=== PATIENT | male | born 1950 | race Caucasian/White ===

== ENCOUNTER 2019-09-03 12:49 | Inpatient (IN) | payer OTHER ==
[~2019-09-03] VITALS: Ht 182.9 cm; Wt 62.2 kg
--- NOTE | 2019-09-03 13:17 | NUR ---
PATIENT STATES HE SLIPPED AND FELL ON HIS HIP ABOUT 12 DAYS AGO. WENT TO [facility] IN [place] AND WAS TOLD HE HAD A FRACTURED HIP - HE DID NOT BELIEVE THAT. HE CAME OUT TO [place] TO VISIT FAMILY AND WAS IN PAIN AND HAVING TROUBLE WALKING. WENT TO THE [facility] IN [place] AND WAS BROUGHT TO [facility] FOR SURGERY.
[2019-09-03] MEDS ORDERED: ASPI81TA45 PO (13:26)
--- NOTE | 2019-09-03 13:26 | NUR ---
PATIENT STANDBY ASSIST. STATES LAST TIME ATE OR DRANK WAS COFFEE AT 0700 THIS MORNING.
[2019-09-03 13:29] LABS: BASOPHILS # (AUTO) 0.05 x10^3/uL (0-0.1); BASOPHILS % (AUTO) 1 % (0-1); EOSINOPHILS # (AUTO) 0.14 x10^3/uL (0-0.4); EOSINOPHILS % (AUTO) 2 % (1-7); LYMPHOCYTES # (AUTO) 1.77 x10^3/uL (1-3.4); LYMPHOCYTES % (AUTO) 20 % (22-44); MD NO; MEAN CORPUSCULAR HEMOGLOBIN 30.6 pg (27.5-34.5); MEAN CORPUSCULAR HGB CONC 32.5 g/dL (33.2-36.2); MEAN CORPUSCULAR VOLUME 94.1 fL (81-97); MEAN PLATELET VOLUME 7.7 fL (7.4-10.4); MONOCYTES # (AUTO) 0.41 x10^3/uL (0.2-0.8); MONOCYTES % (AUTO) 5 % (2-9); NEUTROPHILS # (AUTO) 6.33 x10^3/uL (1.8-6.8); NEUTROPHILS % (AUTO) 73 % (42-75); PLATELET COUNT 415 x10^3/uL (130-400); RED BLOOD COUNT 5.08 x10^6/uL (4.38-5.82); RED CELL DISTRIBUTION WIDTH 14.8 % (9.4-14.8)
[2019-09-03] MEDS ORDERED: SODIUM CHLORIDE FLUSH 10ML SYR IVF ONE (13:30)
[2019-09-03 13:41] LABS: ALBUMIN 3.2 g/dL (3.4-5.0); ANION GAP 5 mmol/L (5-15); CALCIUM 8.6 mg/dL (8.5-10.1); CHLORIDE 110 mmol/L (98-107); CREATININE 0.82 mg/dL (0.7-1.3)
[2019-09-03] MEDS ORDERED: [UNRECOGNIZED DRUG - REMARK] PO (13:49)
--- NOTE | 2019-09-03 15:07 | NUR ---
PATIENT IS GETTING READY FOR SURGERY TODAY. PATIENT IS ANXIOUS ABOUT THE SURGERY.
--- NOTE | 2019-09-03 15:15 | NUR ---
DOCTOR TONEY NOTIFIED ABOUT HIGH BLOOD PRESSURE
[2019-09-03] MEDS ORDERED: SODIUM CHLORIDE FLUSH 10ML SYR IVF PRN (15:30)
--- NOTE | 2019-09-03 15:37 | NUR ---
PATIENT DENIES HAVING ANY BELONGINGS HERE WITH HIM BESIDES HIS BOXERS
[2019-09-03] MEDS ORDERED: POLYETHYLENE GLYCOL 17 GM PACKET PO PRN (16:30)
[2019-09-03] MEDS ORDERED: DOCUSATE 100 MG CAPSULE PO PRN (16:30)
[2019-09-03] MEDS ORDERED: LABETALOL 5MG/ML, 20ML IVPush PRN (16:30)
[2019-09-03] MEDS ORDERED: ONDANSETRON ODT 4 MG PO PRN (16:30)
[2019-09-03] MEDS ORDERED: DEXAMETHASONE 4 MG/ML, 1ML ONE (17:35)
[2019-09-03] MEDS ORDERED: hydrALAzine 20 MG/ML, 1ML ONE (17:35)
[2019-09-03] MEDS ORDERED: ROCURONIUM 10MG/ML,5ML ONE (17:35)
[2019-09-03] MEDS ORDERED: MIDAZOLAM 1 MG/ML, 2ML ONE (17:35)
[2019-09-03] MEDS ORDERED: ONDANSETRON 2MG/ML, 2ML ONE (17:35)
[2019-09-03] MEDS ORDERED: FENTANYL PF 250 MCG/5ML ONE (17:35)
[2019-09-03] MEDS ORDERED: PROPOFOL 10 MG/ML, 20ML ONE (17:35)
[2019-09-03] MEDS ORDERED: CEFAZOLIN 1,000 MG ONE (17:35)
[2019-09-03] MEDS ORDERED: SUCCINYLCHOLINE 20 MG/ML, 10ML ONE (17:35)
[2019-09-03] MEDS ORDERED: LABETALOL 5MG/ML, 20ML ONE (17:35)
[2019-09-03] MEDS ORDERED: HYDROmorphone 1 MG/ML, 1ML INJ IV PRN (18:30)
[2019-09-03] MEDS ORDERED: METOCLOPRAMIDE 5 MG/ML, 2ML IV PRN (18:30)
[2019-09-03] MEDS ORDERED: FENTANYL PF 100 MCG/2ML IV PRN (18:30)
[2019-09-03] MEDS ORDERED: KETOROLAC 30 MG/1 ML IV PRN (18:30)
[2019-09-03] MEDS ORDERED: ONDANSETRON 2MG/ML, 2ML IVPush PRN (18:30)
[2019-09-03] MEDS ORDERED: OXYcodone 5 MG/5 ML ORAL.SOL UDC PO PRN (18:30)
[2019-09-03] MEDS ORDERED: ALBUTEROL SULFATE 2.5 MG/3 ML NPPB PRN (18:30)
[2019-09-03] MEDS ORDERED: MEPERIDINE/PF 25MG/0.5ML IVPush PRN (18:30)
[2019-09-03] MEDS ORDERED: PROMETHAZINE 25 MG/ML, 1ML IV PRN (18:30)
[2019-09-03] MEDS ORDERED: hydrALAzine 20 MG/ML, 1ML IV PRN (18:30)
[2019-09-03] MEDS ORDERED: LABETALOL 5MG/ML, 20ML IV PRN (18:30)
[2019-09-03] MEDS ORDERED: OXYcodone 5 MG/5 ML ORAL.SOL UDC ONE (19:10)
[2019-09-03] MEDS ORDERED: FENTANYL PF 100 MCG/2ML ONE (19:22)
[2019-09-03 20:00] VITALS: BP 152/84
[2019-09-03 20:15] VITALS: BP 150/88
[2019-09-03 20:30] VITALS: BP 149/89
[2019-09-03] MEDS: NICOTINE 14MG/24 HR PATCH.TD24 TD SCH (20:37)
[2019-09-03] MEDS: HEPARIN 5,000 UNITS/ML, 1ML SQ SCH (20:37)
[2019-09-03] MEDS: AMLODIPINE 5 MG TABLET PO SCH (20:38)
[2019-09-03] MEDS: LISINOPRIL 10 MG TABLET PO SCH (20:38)
[2019-09-03 20:45] VITALS: BP 149/89
[2019-09-04] MEDS: CEFAZOLIN PMX 1GM/50ML 50 ML IV SCH ×2 (01:22→10:35)
[2019-09-04 02:00] VITALS: BP 114/71
[2019-09-04] MEDS: OXYcodone IR 5MG TABLET PO PRN ×4 (03:12→20:50)
[2019-09-04] MEDS: HEPARIN 5,000 UNITS/ML, 1ML SQ SCH ×3 (05:02→20:41)
[2019-09-04 05:36] LABS: ALBUMIN 2.5 g/dL (3.4-5.0); ANION GAP 8 mmol/L (5-15); CALCIUM 7.8 mg/dL (8.5-10.1); CHLORIDE 106 mmol/L (98-107)
[2019-09-04 05:38] LABS: BASOPHILS # (AUTO) 0.03 x10^3/uL (0-0.1); BASOPHILS % (AUTO) 0 % (0-1); EOSINOPHILS % (AUTO) 0 % (1-7); LYMPHOCYTES % (AUTO) 6 % (22-44); MD NO; MEAN CORPUSCULAR HEMOGLOBIN 30.4 pg (27.5-34.5); MEAN CORPUSCULAR HGB CONC 32.6 g/dL (33.2-36.2); MEAN CORPUSCULAR VOLUME 93.5 fL (81-97); MEAN PLATELET VOLUME 7.9 fL (7.4-10.4); MONOCYTES # (AUTO) 0.85 x10^3/uL (0.2-0.8); MONOCYTES % (AUTO) 7 % (2-9); NEUTROPHILS # (AUTO) 10.31 x10^3/uL (1.8-6.8); NEUTROPHILS % (AUTO) 87 % (42-75); PLATELET COUNT 347 x10^3/uL (130-400); RED BLOOD COUNT 4.09 x10^6/uL (4.38-5.82); RED CELL DISTRIBUTION WIDTH 14.5 % (9.4-14.8)
[2019-09-04 05:40] LABS: ALANINE AMINOTRANSFERASE 10 U/L (12-78); ALKALINE PHOSPHATASE 65 U/L (45-117); BILIRUBIN,TOTAL 0.6 mg/dL (0.2-1.0); CREATININE 0.87 mg/dL (0.7-1.3); TOTAL PROTEIN 5.4 g/dL (6.4-8.2)
[2019-09-04 08:00] VITALS: BP 124/72
[2019-09-04] MEDS: LISINOPRIL 10 MG TABLET PO SCH (09:47)
[2019-09-04] MEDS: AMLODIPINE 5 MG TABLET PO SCH (09:47)
[2019-09-04] MEDS ORDERED: MAGNESIUM SULFATE PMX 2GM/50ML 50 ML IV ONE (11:30)
[2019-09-04 14:00] VITALS: BP 101/63
[2019-09-04 19:11] VITALS: BP 135/74
[2019-09-04] MEDS: NICOTINE 14MG/24 HR PATCH.TD24 TD SCH (20:30)
[2019-09-04] MEDS: morphine SULFATE 10 MG/ML, 1ML IVPush PRN (22:08)
[2019-09-05 01:52] VITALS: BP 125/76
[2019-09-05] MEDS: OXYcodone IR 5MG TABLET PO PRN ×4 (03:41→23:35)
[2019-09-05] MEDS: morphine SULFATE 10 MG/ML, 1ML IVPush PRN ×2 (04:51→12:58)
[2019-09-05] MEDS: HEPARIN 5,000 UNITS/ML, 1ML SQ SCH ×3 (04:51→21:23)
[2019-09-05 05:29] LABS: BASOPHILS # (AUTO) 0.05 x10^3/uL (0-0.1); BASOPHILS % (AUTO) 1 % (0-1); EOSINOPHILS # (AUTO) 0.08 x10^3/uL (0-0.4); EOSINOPHILS % (AUTO) 1 % (1-7); LYMPHOCYTES # (AUTO) 1.52 x10^3/uL (1-3.4); LYMPHOCYTES % (AUTO) 19 % (22-44); MD NO; MEAN CORPUSCULAR HEMOGLOBIN 30.7 pg (27.5-34.5); MEAN CORPUSCULAR HGB CONC 32.8 g/dL (33.2-36.2); MEAN CORPUSCULAR VOLUME 93.7 fL (81-97); MEAN PLATELET VOLUME 7.9 fL (7.4-10.4); MONOCYTES # (AUTO) 0.87 x10^3/uL (0.2-0.8); MONOCYTES % (AUTO) 11 % (2-9); NEUTROPHILS # (AUTO) 5.66 x10^3/uL (1.8-6.8); NEUTROPHILS % (AUTO) 69 % (42-75); PLATELET COUNT 308 x10^3/uL (130-400); RED BLOOD COUNT 3.69 x10^6/uL (4.38-5.82); RED CELL DISTRIBUTION WIDTH 14.9 % (9.4-14.8)
[2019-09-05 05:40] LABS: ANION GAP 5 mmol/L (5-15); CHLORIDE 107 mmol/L (98-107); CREATININE 0.79 mg/dL (0.7-1.3)
[2019-09-05] MEDS: AMLODIPINE 5 MG TABLET PO SCH (08:39)
[2019-09-05] MEDS: LISINOPRIL 10 MG TABLET PO SCH (08:39)
[2019-09-05 08:42] VITALS: BP 122/73
[2019-09-05] MEDS ORDERED: MORPHINE SULFATE 4 MG/ML, 1ML ONE (12:56)
[2019-09-05 14:15] VITALS: BP 145/76
[2019-09-05 18:00] VITALS: BP 146/86
[2019-09-05] MEDS: NICOTINE 14MG/24 HR PATCH.TD24 TD SCH (20:30)
[2019-09-05 23:30] VITALS: BP 129/75
[2019-09-06 01:13] VITALS: BP 132/76
[2019-09-06] MEDS: HEPARIN 5,000 UNITS/ML, 1ML SQ SCH ×3 (05:37→21:17)
[2019-09-06 07:54] LABS: ALANINE AMINOTRANSFERASE 10 U/L (12-78); ALBUMIN 2.4 g/dL (3.4-5.0); ANION GAP 6 mmol/L (5-15); CALCIUM 8.2 mg/dL (8.5-10.1); CHLORIDE 102 mmol/L (98-107); CREATININE 0.76 mg/dL (0.7-1.3)
[2019-09-06 07:56] LABS: ALKALINE PHOSPHATASE 62 U/L (45-117); BILIRUBIN,TOTAL 0.6 mg/dL (0.2-1.0); TOTAL PROTEIN 5.9 g/dL (6.4-8.2)
[2019-09-06] MEDS: OXYcodone IR 5MG TABLET PO PRN ×4 (08:09→22:36)
[2019-09-06 09:38] VITALS: BP 131/75
[2019-09-06] MEDS: AMLODIPINE 5 MG TABLET PO SCH (10:02)
[2019-09-06] MEDS: LISINOPRIL 10 MG TABLET PO SCH (10:02)
[2019-09-06 14:49] VITALS: BP 128/80
[2019-09-06 19:08] VITALS: BP 137/82
[2019-09-06] MEDS: NICOTINE 14MG/24 HR PATCH.TD24 TD SCH (20:30)
[2019-09-07 01:01] VITALS: BP 149/84
[2019-09-07] MEDS: OXYcodone IR 5MG TABLET PO PRN ×3 (04:35→20:46)
[2019-09-07] MEDS: HEPARIN 5,000 UNITS/ML, 1ML SQ SCH ×3 (05:39→20:45)
[2019-09-07 08:05] VITALS: BP 158/88
[2019-09-07] MEDS: LISINOPRIL 10 MG TABLET PO SCH (09:20)
[2019-09-07] MEDS: AMLODIPINE 5 MG TABLET PO SCH (09:20)
[2019-09-07 13:00] VITALS: BP 121/44
[2019-09-07 19:33] VITALS: BP 143/71
[2019-09-07] MEDS: NICOTINE 14MG/24 HR PATCH.TD24 TD SCH (20:24)
[2019-09-08 01:15] VITALS: BP 155/83
[2019-09-08] MEDS: OXYcodone IR 5MG TABLET PO PRN ×2 (01:50→08:52)
[2019-09-08] MEDS: HEPARIN 5,000 UNITS/ML, 1ML SQ SCH ×2 (05:20→13:09)
[2019-09-08 07:36] VITALS: BP 152/87
[2019-09-08] MEDS: AMLODIPINE 5 MG TABLET PO SCH (08:47)
[2019-09-08] MEDS: LISINOPRIL 10 MG TABLET PO SCH (08:47)
[2019-09-08 13:25] VITALS: BP 149/82
[2019-09-08] MEDS ORDERED: ONDA4TAB13 PO (14:53)
[2019-09-08] MEDS ORDERED: NICO-486 TD (14:53)
[2019-09-08] MEDS ORDERED: OXYC5TAB3 PO (14:53)
[2019-09-08] MEDS ORDERED: DOCU-131 PO (14:53)
[2019-09-08] MEDS ORDERED: POLY17PO5 PO (14:53)
[2019-09-08] MEDS ORDERED: AMLO-150 PO (14:53)
[2019-09-08] MEDS ORDERED: LISI-167 PO (14:53)
[2019-09-08] MEDS ORDERED: ENOX40SY4 SQ (14:59)
[2019-09-08] MEDS ORDERED: ENOXAPARIN 40 MG/0.4 ML SQ SCH (15:00)
== END 2019-09-08 15:03 | DRG 469 ==
LOC: ED 14:26 → EDIP 15:25 → 4EST 20:00
PROVIDERS: ADMIT Internal Medicine; ATTEND Internal Medicine
PROC: 0SRR0JA Replacement of Right Hip Joint, Femoral Surface with Synthetic Substitute, Uncemented, Open Approach (ICD-10-PCS; principal; 2019-09-04)
DX: S72.001A Fracture of unspecified part of neck of right femur, initial encounter for closed fracture (principal); E43 Unspecified severe protein-calorie malnutrition; Z68.1 Body mass index [BMI] 19.9 or less, adult; I16.0 Hypertensive urgency; F17.210 Nicotine dependence, cigarettes, uncomplicated; I25.10 Atherosclerotic heart disease of native coronary artery without angina pectoris; I10 Essential (primary) hypertension; W18.39XA Other fall on same level, initial encounter; Y93.01 Activity, walking, marching and hiking; Y92.89 Other specified places as the place of occurrence of the external cause; Y99.8 Other external cause status; R33.9 Retention of urine, unspecified
CPT/HCPCS: 36415; 71045; 72170; 80048; 80053; 82040; 83735; 84100; 85025; 93005; G0378; J0690; J1100; J1644; J2250; J2405; J2704; J3010; Q0162; C1776; J0330; J0360; J2270; J3475